=== PATIENT | male | born 1995 | race Caucasian/White ===

== ENCOUNTER 2023-04-07 10:49 | Emergency (ER) | payer OTHER, SELFPAY ==
[2023-04-07 11:01] VITALS: BP 123/83; PULSE 116; RESP 18; TEMP 36.8; O2SAT 97
[2023-04-07 11:16] VITALS: BP 123/83; PULSE 116; RESP 18; TEMP 36.8; O2SAT 97
--- NOTE | 2023-04-07 11:39 | ED.URI ---
HPI - URI/Sore Throat General Chief Complaint: Upper Respiratory Infection Stated Complaint: Sore Throat Time Seen by Provider: 04/07/23 11:40 Source: patient, RN notes reviewed and old records reviewed Mode of arrival: ambulatory Limitations: no limitations History of Present Illness HPI Narrative: 27-year-old male presents to [facility] with complaints sore throat, body aches,chills, which started yesterday,Patient reports that he has had a sore throat with painful swallowing, he states that he has been taking Ibuprofen for his pain and fevers, Patient denies any nausea or vomiting, no cough or any ear pain. MD elicited complaint: fever, sore throat and other (body aches) Onset (ago): day(s) (day 2 of symptoms) Pain scale (0-10): 8 Able to tolerate fluids by mouth: Yes Treatments prior to arrival: ibuprofen Related Data Allergies Allergy/AdvReac Type Severity Reaction Status Date / Time No Known Allergies Allergy Unverified 04/07/23 10:54 Review of Systems Review of Systems: CONSTITUTIONAL: Reports malaise, chills, sweats, or fever. EYES: Denies visual changes, redness, or discharge. ENT: Reports no rhinorrhea, congestion, sinus pain,no otalgia and positive for sore throat. CARDIOVASCULAR: Denies chest pain, palpitations, or edema. RESPIRATORY: Reports no cough.? Denies dyspnea. GASTROINTESTINAL: Denies abdominal pain, nausea, vomiting, diarrhea SKIN: Denies rash or itching. MUSCULOSKELETAL: Reports myalgia. NEUROLOGIC: Denies headache. All systems reviewed & are unremarkable except as noted in HPI and below PMFSH Past Medical History Medical History (Updated 04/08/23 @ 11:48 by Viki Mon NP) Anxiety Surgical History Surgical History (Updated 04/08/23 @ 11:50 by Viki Mon NP) H/O hand surgery reattach right 4th finger Social History Social History (Updated 04/08/23 @ 11:47 by Viki Mon NP) Smoking status: Never smoker Alcohol intake: current Alcohol use details: social Substance use type: does not use Comments At time of signature, agree with nursing past medical, surgical, social and family history. There is no relevant family history pertinent to the presenting complaint Exam Narrative: GENERAL: Well-appearing, well-nourished, and in no acute distress. HEAD: Normocephalic EYES: PERRLA, conjunctivae clear ENT: Nares clear, turbinates edematous and erythematous, clear discharge. Mucous membranes moist. TM pearly josue with dull light reflex bilaterally; no tragal tenderness. Oropharynx erythematous without lesions. Tonsils red and enlarged and throat without exudate, no drooling, no hoarseness, no trismus, uvula midline. NECK: Supple. lymphadenopathy CHEST: Clear to auscultation, breath sounds equal. No wheezing, rhonchi, rales, or stridor. No respiratory distress, speaks in full sentences.no cough noted SAO2 97% on room air HEART: Regular rate and rhythm. No murmur heard. SKIN: Warm, dry, no rash. NEURO: Alert and oriented x3. PSYCH: Normal mood and affect Course Course Emergency Course: Patient is aware of diagnosis, understands and agrees to treatment plan.? Anticipatory guidance given.? Patient agrees to follow-up as directed and is aware of reasons to seek care at the emergency department. Portions of this record may have been created with voice recognition software Level of Care: [facility] Visit Vital Signs Vital signs: Vital Signs Temperature 36.8 C 04/07/23 11:01 Pulse Rate 116 H 04/07/23 11:01 Respiratory Rate 18 04/07/23 11:01 Blood Pressure 123/83 04/07/23 11:01 Pulse Oximetry 97 04/07/23 11:01 Oxygen Delivery Room Air 04/07/23 11:01 Temperature 36.8 C 04/07/23 11:16 Pulse Rate 116 H 04/07/23 11:16 Respiratory Rate 18 04/07/23 11:16 Blood Pressure 123/83 04/07/23 11:16 Pulse Oximetry 97 04/07/23 11:16 Oxygen Delivery Room Air 04/07/23 11:16 Reviewed
== END 2023-04-07 11:50 | disposition home or self-care (01) ==
PROVIDERS: Emergency Provider Registered Nurse
DX: J02.0 Streptococcal pharyngitis (principal); Z20.822 Contact with and (suspected) exposure to COVID-19
CPT/HCPCS: 87426; 87804; 87880; 99213; C9803; G0463